=== PATIENT | female | born 1990 | race Caucasian/White ===

== ENCOUNTER 2021-10-12 15:43 | Emergency (ER) | payer OTHER, SELFPAY ==
[2021-10-12 15:45] VITALS: BP 127/85; PULSE 107; RESP 18; TEMP 37; O2SAT 97; BMI 34.4
--- NOTE | 2021-10-12 16:18 | CT_ITS ---
STUDY: PULMONARY AND CHEST CT ANGIOGRAPHY OF 1646 HOURS AND 10/12/2021 REASON FOR EXAM: 31-year-old female with chest pain. Covid positive. RADIATION DOSAGE (If Supplied By Facility): CTDIvol = ( 11.41 ) mGy, DLP = ( 476.59 ) mGycm TECHNIQUE: The examination was performed with the intravenous administration of IV 100mL Isovue-370. Post-processing of the angiographic images was performed, with multiplanar reformation and 3D reconstruction. Individualized dose optimization techniques were used for this CT. COMPARISON: None. FINDINGS: No cardiomegaly. No hilar or mediastinal lymphadenopathy. No pulmonary infiltrates, atelectasis, effusion, or pulmonary mass lesions. There is no evidence of pulmonary thromboembolism. There is no evidence of a thoracic aortic dissection or aneurysm. CT/CTA Chest W/WO Contrast IMPRESSION: 1. No evidence of pulmonary thromboembolism. 2. No findings of a thoracic aortic dissection or aneurysm. 3. No active cardiopulmonary disease is noted. Electronically Signed: Lucho Julien MD at 17:12 EDT ,
--- NOTE | 2021-10-12 16:18 | EKG12_ITS ---
Test Reason : CP Blood Pressure : / mmHG Vent. Rate : 105 BPM Atrial Rate : 105 BPM P-R Int : 142 ms QRS Dur : 082 ms QT Int : 324 ms P-R-T Axes : 043 046 005 degrees QTc Int : 428 ms Sinus tachycardia T wave abnormality, consider inferior ischemia Abnormal ECG Confirmed by FABIOLA STEEN, KYREE ([id number]), book or script editor FARA NEVES ([id number]) on 10/14/2021 10:55:33 A M Referred By: Confirmed By:TESSA HICKS MD
--- NOTE | 2021-10-12 16:34 | ED.VIS.CHEST ---
HPI History of Present Illness Chief Complaint: Chest Pain Informant: patient Narrative Narrative: Patient was referred for a CTA of the chest to rule out blood clot. Patient has a history of what sounds like a superficial clot in the right calf years ago that was never treated with anticoagulation. Patient started with fevers on Sunday. She tested positive for COVID the next day. She has been having pain in her joints mostly knees elbows but also in her shoulders and back. She has some in her upper chest. She is coughing but she is not actually short of breath. No hemoptysis. She has no nausea vomiting diarrhea [place]. She is eating and drinking. [facility] Medical History (Updated 10/12/21 @ 17:[address] Baljit Abad MD) Anxiety Home Medications [id number] [ Multi] 1 tab PO DAILY 10/09/16 [History Last Taken 03/15/17 18:00 1 tab] Allergy/AdvReac Type Severity Reaction Status Date / Time No Known Allergies Allergy Verified 10/12/21 15:44 Social History Smoking Status: Never smoker ROS ROS ED Constitutional Constitutional ED: Reports chills, fever(s) and subjective Eyes Eyes: Denies blurry vision or change in vision ENT ENT ED: Reports rhinorrhea; Denies sore throat Cardiovascular Cardiovascular: Reports as per HPI Respiratory/Chest Respiratory/Chest: Reports cough; Denies dyspnea, dyspnea on exertion or sputum Gastrointestinal Gastrointestinal: Denies abdominal pain, diarrhea, nausea or vomiting Genitourinary Genitourinary ED: Denies dysuria Musculoskeletal Musculoskeletal: Reports arthralgias and myalgias Integumentary Denies rash Neurologic Neurologic: Denies headache(s) or weakness Psychiatric Psychiatric: Reports anxiety; Denies depression Endocrine Endocrinology: Denies polydipsia or polyuria Hematologic/Lymphatic Hematologic/Lymphatic: Denies easy bleeding or easy bruising Allergic/Immunologic Allergic/Immunologic ED: Denies urticaria EXAM Physical Exam Const Vital Signs: 10/12/21 15:45 10/12/21 16:36 10/12/21 17:15 Temperature 98.6 F Temperature Source Temporal Pulse Rate 107 H 88 Respiratory Rate 18 18 Respiratory Effort Normal Non-Labored Blood Pressure 127/85 H 127/96 H Blood Pressure Mean 99 106 Pulse Ox 97 97 Oxygen Delivery Method Room Air Room Air Positive well nourished and well developed General Appearance ED: well developed and NAD HEENT Reports moist mucous membranes normocephalic and atraumatic Eyes PERRL and EOMs intact bilaterally Neck no lymphadenopathy, supple and no JVD Chest Wall Chest: tenderness Resp normal respiratory effort and clear to auscultation bilaterally Effort and Inspection: Negative for respiratory distress Auscultation: Negative for rales, rhonchi or wheezes Cardio regular rhythm Rate: tachycardic and other Other Details: Very tachycardic rate. GI normal to inspection, nondistended, normoactive bowel sounds and soft to palpation Back/Spine no CVA tenderness Extremity normal to inspection General Extremety ED: Negative for edema, pulses abnormal or tenderness General Extremity: Negative for edema or pulses abnormal Neuro Sensorium / Orientation: awake and alert Psych mental status grossly normal Skin no rashes or lesions noted MDM MDM MDM Narrative Medical decision making narrative: Patient does have cough, some pain with breathing, history of venous thromboembolism, tachycardia and COVID. Patient CBC is normal. White count is normal but toward the lower end consistent with COVID. Electrolytes are normal. CT shows no sign of thromboembolism or dissection or aneurysm. No acute cardiopulmonary disease noted. Patient is at very low risk for decompensation from COVID. I think she is able to go home with symptomatic treatment. Lab Data Attestation: I reviewed the patient's lab results. Labs: Laboratory Results - last 24 hr 10/12/21 10/12/21 16:34 16:34 WBC 5.6 RBC 4.98 Hgb 14.7 Hct 43.8 MCV 88.0 MCH 29.5 MCHC 33.6 RDW Std Deviation 38.2 RDW Coeff of Enrike 11.9 Plt Count 199 MPV 10.5 Immature Gran % (Auto) 0.400 Neut % (Auto) 48.8 Lymph % (Auto) 33.4 [place] % (Auto) 16.3 H Eos % (Auto) 0.4 Baso % (Auto) 0.7 Absolute Neuts (auto) 2.7 Absolute Lymphs (auto) 1.87 Nucleated RBC % 0 Sodium 140 Potassium 3.8 Chloride 106 Carbon Dioxide 29.0 Anion Gap 5 BUN 9 Creatinine 0.84 Estim Creat Clear Calc 77.45 Est GFR (MDRD) Af Amer 102 Est GFR (MDRD) Non-Af 84 BUN/Creatinine Ratio 10.7 Glucose 93 Calcium 8.9 Radiography Diagnostic Testing: Clinical Impression(s) from Imaging Studies Chest CTA 10/12/21 16:18 IMPRESSION: 1. No evidence of pulmonary thromboembolism. 2. No findings of a thoracic aortic dissection or aneurysm. 3. No active cardiopulmonary disease is noted. Electronically Signed: Lucho Julien MD at 17:12 EDT , EKG Initial EKG: Comments: EKG done for cough and chest discomfort shows sinus tachycardia with a rate of 105. No ventricular ectopy. No acute ST elevation or depression. VT interval, QRS duration and QTc are normal. Discharge Plan Triage Chief Complaint: Chest Pain ED Provider: Baljit Abad Dx/Rx/DC Orders Clinical Impression: COVID-19, Myalgia Instructions: Coronavirus Disease 2019 (COVID-19): Caring for Yourself or Others Prescriptions: No Action [id number] [ Multi] 1 EACH tablet 1 tab PO DAILY RF: 0 Primary Care Provider: Domenico Silva Referrals: Domenico Silva MD [Primary Care Provider] - 10-14 Days if not better Disposition Disposition: Home, Self Care
[2021-10-12 16:49] LABS: Absolute Lymphocyte Count 1.87 X10^3/uL (0.83-4.51); Absolute Neutrophil Count 2.7 X10^3/uL (2.0-7.7); Basophil# 0.04 X10^3/uL; Basophil% 0.7 % (0-1); Eosinophil# 0.02 X10^3/uL; Eosinophils% 0.4 % (0-5); Hematocrit 43.8 % (37-47); Hemoglobin 14.7 g/dL (12.0-15.0); Lymphocyte # 1.87 X10^3/ul (0.83-4.51); Lymphocyte % 33.4 % (19-41); Mean Corp Hgb Conc 33.6 g/dL (32-36); Mean Corpuscular Hgb 29.5 pg (27.0-32.0); Mean Platelet Vol. 10.5 fl (6.2-12.0); Monocyte# 0.91 X10^3/uL; Monocyte% 16.3 % (0-10); NRBC Flagged by Analyzer 0 % (0-5); Neutrophil # 2.74 X10^3/uL (2.7-7.7); Neutrophil % 48.8 % (47-70); Platelet Count 199 K/mm3 (150-450); RBC Distribution Width CV 11.9 % (11.6-14.6); RBC Distribution Width SD 38.2 fl (35.1-43.9); Red Blood Count 4.98 M/mm3 (4.2-5.4); White Blood Count 5.6 K/mm3 (4.4-11.0)
[2021-10-12 17:03] LABS: Anion Gap 5 (5-15); BUN 9 mg/dL (7-18); BUN/Creat Ratio 10.7 RATIO (10-20); Calcium,Total 8.9 mg/dL (8.5-10.1); Chloride 106 mmol/L (98-107); Creatinine, Serum 0.84 mg/dL (0.55-1.02); EST Glomerular Filtration Rate 84 mL/min (>60); Est Glom Filt Rate - Afr Amer 102 mL/min (>60); Estimated Creatinine Clearance 77.45 ml/min; Glucose 93 mg/dL (74-106); Potassium 3.8 mmol/L (3.5-5.1); Sodium Level 140 mmol/L (136-145)
[2021-10-12 17:15] VITALS: BP 127/96; PULSE 88; RESP 18; O2SAT 97
[2021-10-12 17:58] VITALS: BP 127/96; PULSE 79; RESP 16; O2SAT 98
== END 2021-10-12 17:58 | disposition home or self-care (01) ==
PROVIDERS: Emergency Provider Emergency Medicine; PCP Family Medicine; Visit Provider Emergency Medicine
DX: U07.1 COVID-19 (principal); M54.9 Dorsalgia, unspecified; M25.512 Pain in left shoulder; M25.522 Pain in left elbow; R07.1 Chest pain on breathing; M25.521 Pain in right elbow; M79.10 Myalgia, unspecified site; M25.511 Pain in right shoulder
CPT/HCPCS: 71275; 80048; 85025; 93005; 99284; Q9967; A4216